=== PATIENT | female | born 1950 | race Caucasian/White ===

== ENCOUNTER 2017-01-24 23:06 | Inpatient (IN) | payer OTHER ==
--- NOTE | ~2017-01-24 | HP ---
History And Physical [place] [id number] [facility] [place]. [address] NAME: MENA NGUYEN : [birth year] STATUS : ADM IN [facility]#: [id number] AGE: 66 ADM/REG DATE : 01/24/17 MR#: [id number] REPORT SERV DATE: 01/25/17 DICTATED BY: VAN ROSS DATE: 01/24/17 REPORT STATUS : Draft TRANSCRIBED BY: MODL DATE: 01/24/17 DATE OF ADMISSION: 01/24/2017 CHIEF COMPLAINT: A shortness of breath. HISTORY OF PRESENT ILLNESS: This is a 66-year-old lady with history of COPD, smoking, hypertension, diabetes, depression, chronic pain who is presenting with a shortness of breath. The patient reports that she started having shortness of breath since about Monday, when she actually started with a cough. The cough is mildly productive of yellow sputum. The patient did not have any fevers, but she did have some chills. Unfortunately, the patient's shortness of breath and cough got worse over the weekend. The patient finally decided to come to the ER for further evaluation and care. The patient reports that she has not tried any antibiotics or steroids as an outpatient, and the patient reports that she does have COPD, but she is not dependent on any home oxygen. In the ER, the patient was found to be afebrile. The patient was pretty tachycardic with heart rate in the 120s, and the patient was hypoxic requiring 2 L of oxygen per nasal cannula to maintain adequate oxygen saturations. Initial lab evaluation was fairly benign. ABG confirmed hypoxic respiratory failure. Chest x-ray was nonacute. Internal Medicine consultation was requested for admission of the patient for further evaluation and care. REVIEW OF SYSTEMS: The patient denies any fevers, but she did have some chills. Also 14-point review of systems reviewed and negative other than mentioned above. MEDICATIONS: 1. ProAir two puffs inhaled as needed. 2. Albuterol nebulizer inhaled as needed. 3. Norvasc 5 mg p.o. q.p.m. 4. Lipitor 10 mg p.o. at bedtime. 5. Pristiq 50 mg p.o. q.a.m. 6. Dilaudid 2 mg p.o. q.4 hours p.r.n. 7. NovoLog per sliding scale. 8. Lantus 32 units subcu at bedtime. 9. Lisinopril 40 mg p.o. q.a.m. 10.Dulera two puffs inhaled twice daily. 11.Singulair 10 mg p.o. at bedtime. 12.Protonix 40 mg p.o. q.a.m. 13.Lyrica 75 mg p.o. b.i.d. 14.Phenergan 25 mg p.o. daily p.r.n. 15.Xarelto 20 mg p.o. q.a.m. 16.Spiriva one capsule inhaled at bedtime. ALLERGIES: 1. COMPAZINE. 2. STADOL. History And Physical [address] [address] NAME: MENA NGUYEN : [birth year] STATUS : ADM IN [facility]#: [id number] AGE: 66 ADM/REG DATE : 01/24/17 MR#: [id number] REPORT SERV DATE: 01/25/17 DICTATED BY: VAN ROSS DATE: 01/24/17 REPORT STATUS : Draft TRANSCRIBED BY: KANA DATE: 01/24/17 3. MORPHINE. 4. IMITREX. PAST MEDICAL HISTORY: 1. Colon cancer for which the patient follows with Dr. Sandy and Dr. Chavez. The patient has completed her 12 course of chemotherapy back in September and is currently under close surveillance. 2. Thyroid mass, pending surgical evaluation. 3. COPD, not dependent on home oxygen at baseline. 4. Hypertension. 5. Diabetes. 6. Depression. 7. Chronic pain for which the patient is on p.o. Dilaudid. 8. 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 9. Chronic migraines. 10.Peripheral neuropathy. PAST SURGICAL HISTORY: 1. Appendectomy. 2. Cholecystectomy. 3. Hysterectomy and bilateral oophorectomy. 4. Right-sided partial colectomy. 5. Cervical and lumbar spine surgeries. 6. Chemo port placement. FAMILY HISTORY: 1. Diabetes. 2. COPD. 3. Kidney diseases. SOCIAL HISTORY: Unfortunately, the patient continues to smoke about half a pack per day. The patient otherwise does not drink alcohol. 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 The patient lives at home by herself. PHYSICAL EXAMINATION: VITAL SIGNS: Temperature 99.2, blood pressure 187/88, pulse 120, respiratory rate is 16, and saturating 98% on 3 L of oxygen. NEUROLOGIC: The patient is alert and oriented x3 with no focal neurologic deficits. GENERAL: The patient is awake, does not appear to be in acute distress, and she is cooperative. NECK: No JVD. No lymphadenopathy. Normal thyroid. CHEST: No midline sternotomy scar and no tenderness to palpation. LUNGS: The patient has diffuse wheezes bilaterally that is quite severe. Otherwise, the patient actually has fairly normal respiratory effort on 2 L of oxygen. CARDIOVASCULAR: The patient is quite tachycardic, but otherwise, no murmurs, rubs, or gallops, and PMI is nondisplaced. History And Physical [address] [address] NAME: MENA NGUYEN : [birth year] STATUS : ADM IN [facility]#: [id number] AGE: 66 ADM/REG DATE : 01/24/17 MR#: [id number] REPORT SERV DATE: 01/25/17 DICTATED BY: VAN ROSS DATE: 01/24/17 REPORT STATUS : Draft TRANSCRIBED BY: KANA DATE: 01/24/17 ABDOMEN: Soft, nontender, with active bowel sounds and no organomegaly. EXTREMITIES: No edema. Normal distal pulses. No calf tenderness. SKIN: Clean, dry, warm, and intact. LABORATORY DATA: Sodium is 141, potassium 4.1, chloride 103, BUN 16, creatinine 0.91, glucose 167, calcium 10.0, magnesium 1.5. White blood cell count is 12.4, hemoglobin 14.1, platelets 248, INR is 2.7. Troponin is less than 0.02. BNP is 44.5. ABG; pH is 7.45, PCO2 36, PO2 57, and oxygen saturation of 90.2% on room air. Chest x-ray is personally interpreted and it shows flattening of the diaphragms, but otherwise no acute obvious infiltrates. EKG personally interpreted and it shows sinus tachycardia with no obvious ischemic changes. ASSESSMENT: This is a 66-year-old lady with history of chronic obstructive pulmonary disease presenting with acute chronic obstructive pulmonary disease exacerbation. 1. Acute on chronic obstructive pulmonary disease exacerbation. 2. Acute hypoxic respiratory failure secondary to above. 3. Continued smoking. 4. Anticoagulated with Xarelto due to history of mesenteric vein thrombosis. 5. Hypertension. 6. Insulin dependent diabetes, type 2. 7. Depression. 8. Chronic pain. PLAN: The plan is to admit the patient under telemetry monitoring. The patient will be given oxygen support and bronchodilator therapy. The patient will also be treated with IV steroids and antibiotics. The patient was also given smoking cessation counseling. Daily labs will be monitored. Otherwise, for the rest of stable past medical conditions, including hypertension, depression, diabetes et al, I will continue home medications. Standard DVT prophylaxis. The patient is full code at this time. YSC/MODL Van Ross MD / [id number] CC: Daren Lewis MD
--- NOTE | ~2017-01-24 | DS ---
Discharge Summary [facility] [address] [place]. [address] NAME: MENA NGUYEN : 46 STATUS : ADM IN [facility]#: [id number] AGE: 66 ADM/REG DATE : 01/24/17 MR#: [id number] REPORT SERV DATE: 01/28/17 DICTATED BY: ARTUR GILL DATE: 01/28/17 REPORT STATUS : Draft TRANSCRIBED BY: KANA DATE: 01/28/17 ADMISSION DATE: 01/24/2017 DISCHARGE DATE: 01/28/2017 DISCHARGE DIAGNOSES: 1. Chronic obstructive pulmonary disease, acute exacerbation. 2. Hypoxia, resolved. 3. Tobacco abuse. 4. Hypertension. 5. Chronic abdominal pain. 6. Mesenteric vein thrombus, continued Xeloda. 7. Colon cancer, Dr. Sandy, completed chemotherapy. IMAGING: Chest x-ray, January 24, 2017; impression, patchy disease at the left lung base, compatible with infiltrate and/or atelectasis. Right-sided Port-A-Cath in stable position. COURSE OF HOSPITAL STAY: Please refer to history and physical dictated by Dr. Van Velazco on January 24, 2017 for complete admission details. This patient is a 66-year-old female, who presented to [facility] with complaints of shortness of breath. She does present with a history of COPD, continues to smoke, hypertension, diabetes, depression, chronic abdominal pain, and colon cancer. 1. Chronic obstructive pulmonary disease, acute exacerbation. The patient was admitted to the hospital initially on nasal cannula, was been weaned off. Laboratory data was obtained. The patient was started on doxycycline, as well as Solu-Medrol. The patient was on Solu-Medrol, then changed to prednisone. At this time, she is on room air, tolerating prednisone and doxycycline. She will be discharged home with a prescription for tapering dose of prednisone, as well as continuing her antibiotic. 2. Hypoxia, resolved. It was noted the patient was in acute hypoxic respiratory failure secondary to her COPD exacerbation. The patient was able to wean off oxygen. At this time, she is on room air. 3. Tobacco abuse. This was discussed with the patient at great length regarding smoking cessation. At this time, the patient states that she will consider it. Prescription was provided. The patient was advised that medication is felt over the counter,but if insurance will pay for it, prescription has been provided for her. 4. Hypertension. The patient's blood pressures remained stable during her stay. 5. Chronic abdominal pain. The patient has had history of chronic abdominal pain. She is followed by Dr. Roberts of [facility]. The patient is on Dilaudid 2 mg every four hours p.r.n. for pain. Prescription was not written for patient's discharge. She has been advised to follow up with Dr. Sandy outpatient if prescription as needed. 6. Mesenteric vein thrombus. The patient has been continued on Xarelto during her stay. 7. Colon cancer. The patient is followed by Dr. Sandy, has completed chemotherapy. DISCHARGE PLAN: The patient will be discharged home today. She is in hemodynamically stable condition. She will follow up with her primary care in five to seven days, as well as Dr. Sandy for pain medication if needed. Discharge Summary [address] [address] NAME: MENA NGUYEN : 46 STATUS : ADM IN [facility]#: [id number] AGE: 66 ADM/REG DATE : 01/24/17 MR#: [id number] REPORT SERV DATE: 01/28/17 DICTATED BY: ARTUR GILL DATE: 01/28/17 REPORT STATUS : Draft TRANSCRIBED BY: KANA DATE: 01/28/17 DISCHARGE MEDICATIONS: 1. Norvasc 5 mg one p.o. every morning. 2. Lipitor 10 mg one p.o. at bedtime. 3. Lantus 32 units subcu at bedtime. 4. NovoLog sliding scale. 5. Lisinopril 40 mg one p.o. every morning. 6. Singulair 10 mg one p.o. at bedtime. 7. Protonix 40 mg one p.o. in the morning. 8. Lyrica 75 mg one p.o. daily. 9. Xarelto 20 mg one p.o. daily. 10.Prednisone tapering dose. 11.ProAir inhaler two puffs inhaler every day. 12.Dulera 200 mcg/5 mcg inhaler, two puffs twice daily. 13.Doxycycline 100 mg one p.o. twice daily. 14.Albuterol inhaler one nebulizer inhaled p.r.n. for shortness of breath. 15.Phenergan 25 mg one p.o. p.r.n. for nausea. 16.Spiriva inhaler one cap inhaled at bedtime. 17.Dilaudid 2 mg one p.o. every four hours as needed for pain. This discharge took greater than 30 minutes. OCTAVIO/KANA Artur Gill NP / [id number] CC: MD Kevin Morgan MD
[2017-01-24 18:49] LABS: BASOPHILS 0.2 %; BASOPHILS ABSOLUTE 0.02 10/3/uL (0.0-0.16); EOSINOPHILS 0.1 %; EOSINOPHILS ABSOLUTE 0.01 10/3/uL (0.0-0.53); ER CBC TAT 0 Hrs 05 Mins; HEMATOCRIT 42.1 % (36.0-48.0); HEMOGLOBIN 14.1 g/dL (12.0-16.0); IMMATURE GRANULOCYTES 0.2 %; IMMATURE GRANULOCYTES ABSOLUTE 0.03 10/3/uL (0.0-0.11); LYMPHOCYTES 10.6 %; LYMPHOCYTES ABSOLUTE 1.31 10/3/uL (0.67-4.30); MANUAL DIFF NO %; MEAN CORPUS HGB CONC 33.5 g/dL (32.0-36.0); MEAN CORPUSCULAR HEMOGLOB 30.3 pg (26.0-34.0); MEAN CORPUSCULAR VOLUME 90.3 fL (80-100); MEAN PLATELET VOLUME 11.4 fL (9.2-13.0); MONOCYTES ABSOLUTE 0.86 10/3/uL (0.21-1.20); NEUTROPHILS 81.9 %; NEUTROPHILS ABSOLUTE 10.13 10/3/uL (2.02-8.40); PLATELET COUNT 248 10/3/uL (150-400); RBC DISTRIBUTION WIDTH 12.8 % (12.0-16.0); RED CELL COUNT 4.66 10/6/uL (4.0-5.6); WHITE BLOOD CELLS 12.4 10/3/uL (4.5-10.5)
[2017-01-24 18:57] LABS: INTERNATIONAL NORMAL RATI 2.7 UNITS (-); PARTIAL THROMBO TIME 44.4 SEC (22.5-37.2)
[2017-01-24 18:59] LABS: PROTIME (NOT ORD) 28.7 SEC (12.0-14.5)
[2017-01-24 19:07] LABS: BUN (BLOOD UREA NITROGEN) 16 MG/DL (6-23); CHEST PAIN PROFILE TAT 0 Hrs 23 Mins; CHLORIDE, SERUM 103 MMOL/L (96-112); CO2 (CARBON DIOXIDE) 27 MMOL/L (24-34); CREATININE 0.91 MG/DL (0.55-1.02); GFR AFRICAN AMERICAN 75 ML/MIN (>=60); GFR NON AFRICAN AMERICAN 65 ML/MIN (>=60); GLUCOSE, SERUM 167 MG/DL (60-99); POTASSIUM, SERUM 4.1 MMOL/L (3.5-5.3); SODIUM, SERUM 141 MMOL/L (135-148); TROPONIN I <0.02 NG/ML (<0.05)
[2017-01-24 22:09] LABS: CARBOXYHEMOGLOBIN 3.6 % (0-3); HCO3 (ACTUAL BICARBONATE) 24.6 MEQ/L (23-27); HEMOBLOGIN CONTENT 13.8 G/DL (12-16); INSTRUMENT SERIAL # 8087; METHEMOGLOBIN 0.3 % (0-3); O2 CONTENT 16.8 VOL% (18-24); PCO2 (CO2 TENSION) 36 MMHG (35-45); PO2 (O2 TENSION) 57 MMHG (79-93); SAMPLE Arterial; pH 7.45 (7.37-7.43)
[~2017-01-24 23:06] MED LIST: ACET500CAP PO; ALBUTEROL NEBULIZER INH; ALBUTEROL0.083 % INH; ASAB PO; CHEMO IJ; CHEMO IV; CLARIT10 PO; DIL2TAB PO; DULERA 200 MCG/13 GM INH; ELIQUIS 5 MG TAB5 MG PO; HUMI PO; HUMULIN R1 ML SC; HYDROCHLOROT25 MG PO; IMOD PO; LANTUS SC; LEVAQUIN750 MG PO; LIPITOR10 PO; LISINOPRIL40 MG PO; LORCET PO; LYRICA75 PO; MD ANDERSON PO; NORCO1 TAB PO; NORV5 PO; NOVOLOG SC; OXYCOD PO; P20 PO; PR25 PO; PRISTIQ50 MG PO; PROAIR HFA INH; PROTONIX PO; PROVENTSOL INH; SINGULAIR1 PO; SPIRIVA INH; VENTOLIN HFA INH; X5 PO; XARELTO20 MG PO; Z-PAK PO; ZESTORETIC PO; ZESTRIL40 MG PO; ZOL100 PO
[2017-01-25 05:09] LABS: BASOPHILS 0 %; EOSINOPHILS 0 %; HEMATOCRIT 40.4 % (36.0-48.0); HEMOGLOBIN 13.1 g/dL (12.0-16.0); IMMATURE GRANULOCYTES 0.2 %; IMMATURE GRANULOCYTES ABSOLUTE 0.02 10/3/uL (0.0-0.11); LYMPHOCYTES 7.2 %; MANUAL DIFF NO %; MEAN CORPUS HGB CONC 32.4 g/dL (32.0-36.0); MEAN CORPUSCULAR HEMOGLOB 29.8 pg (26.0-34.0); MEAN CORPUSCULAR VOLUME 91.8 fL (80-100); MEAN PLATELET VOLUME 11.8 fL (9.2-13.0); NEUTROPHILS 91.6 %; NEUTROPHILS ABSOLUTE 8.97 10/3/uL (2.02-8.40); PLATELET COUNT 195 10/3/uL (150-400); RBC DISTRIBUTION WIDTH 12.9 % (12.0-16.0); WHITE BLOOD CELLS 9.8 10/3/uL (4.5-10.5)
[2017-01-25 05:15] LABS: BUN (BLOOD UREA NITROGEN) 19 MG/DL (6-23); CALCIUM, SERUM 9.1 MG/DL (8.5-10.4); CHLORIDE, SERUM 103 MMOL/L (96-112); CO2 (CARBON DIOXIDE) 25 MMOL/L (24-34); CREATININE 0.88 MG/DL (0.55-1.02); GFR AFRICAN AMERICAN 78 ML/MIN (>=60); GFR NON AFRICAN AMERICAN 68 ML/MIN (>=60); POTASSIUM, SERUM 4.3 MMOL/L (3.5-5.3); SODIUM, SERUM 139 MMOL/L (135-148)
[2017-01-25 05:18] LABS: GLUCOSE, SERUM 345 MG/DL (60-99)
[2017-01-28] MEDS ORDERED: STERAPRED DS10 MG PO (10:52)
[2017-01-28] MEDS ORDERED: ADOXA PAK1 MG/150 M PO (10:53)
[2017-01-28] MEDS ORDERED: HABIT14 TOP (10:54)
[2017-01-30] MEDS ORDERED: HABIT14 TOP (12:47)
[2017-02-20] MEDS ORDERED: NORCO1 TAB PO (12:18)
[2017-03-31] MEDS ORDERED: HYGROTON 25 MG25 MG PO (15:05)
[2017-07-31] MEDS ORDERED: LANTUS SC (00:47)
[2017-07-31] MEDS ORDERED: HUMULIN R1 ML SC (00:48)
[2017-07-31] MEDS ORDERED: LIPITOR10 PO (00:49)
[2017-07-31] MEDS ORDERED: PRISTIQ50 MG PO (00:49)
[2017-07-31] MEDS ORDERED: SINGULAIR1 PO (00:49)
[2017-07-31] MEDS ORDERED: LISINOPRIL40 MG PO (00:49)
[2017-07-31] MEDS ORDERED: PRIN20 PO (00:50)
[2017-07-31] MEDS ORDERED: PROAIR HFA INH (00:50)
[2017-07-31] MEDS ORDERED: VENTOLIN HFA INH (00:51)
[2017-07-31] MEDS ORDERED: NORV5 PO (00:52)
[2017-07-31] MEDS ORDERED: NORCO1 TAB PO (00:52)
[2017-07-31] MEDS ORDERED: PR25 PO (00:53)
[2017-07-31] MEDS ORDERED: BYSTOLIC5 MG PO (00:53)
[2017-08-04] MEDS ORDERED: XARELTO20 MG PO (15:19)
== END 2017-01-28 12:28 | disposition home or self-care (01) | DRG 189 ==
LOC: ER 23:06 → 5NO 23:34 → 4EA 01-26 15:08
PROVIDERS: Emergency Medicine; Internal Medicine; Specialist
DX: J96.01 Acute respiratory failure with hypoxia (principal); I81 Portal vein thrombosis; J44.1 Chronic obstructive pulmonary disease with (acute) exacerbation; C18.9 Malignant neoplasm of colon, unspecified; I10 Essential (primary) hypertension; F17.210 Nicotine dependence, cigarettes, uncomplicated; Z79.01 Long term (current) use of anticoagulants; E11.9 Type 2 diabetes mellitus without complications; Z79.4 Long term (current) use of insulin; F32.9 Major depressive disorder, single episode, unspecified; G89.29 Other chronic pain
CPT/HCPCS: 36600; 71010; 80048; 82805; 82962; 83735; 83880; 84145; 84484; 85025; 85610; 85730; 93005; 94640; 96374; 96375; 99285; A9270-GY; J0456; J1170; J2405; J2550; J2920

== ENCOUNTER 2017-03-02 11:57 | Day surgery (SDC) | payer OTHER ==
--- NOTE | ~2017-03-02 | EGD ---
EGD REPORT [facility] [address] [place] [address] NAME: MCKENNA ESPINO : 46 STATUS : REG [facility]#: [id number] AGE: 66 ADM/REG DATE : 03/02/17 MR#: [id number] REPORT SERV DATE: 03/02/17 DICTATED BY: ANDI ARRIAGA DATE: 03/02/17 REPORT STATUS : Draft TRANSCRIBED BY: [facility] DATE: 03/02/17 Endoscopy Center Patient Name: Mckenna Espino Date of : 1950 Attending MD: BERT ARRIAGA MD Procedure Date No Time: 03/02/2017 Procedure: Colonoscopy Indications: High risk colon cancer surveillance: Personal history of colon cancer Referring MD: Kevin Kearney, Vicente Blanca, Ganesh Sandy Medicines: See the Anesthesia note for documentation of the administered medications Complications: No immediate complications. Estimated blood loss: None. Procedure: Pre-Anesthesia Assessment: - ASA Grade Assessment: III - A patient with severe systemic disease. - Prior to the procedure, a History and Physical was performed, and patient medications and allergies were reviewed. The patient's tolerance of previous anesthesia was also reviewed. The risks and benefits of the procedure and the sedation options and risks were discussed with the patient. All questions were answered, and informed consent was obtained. Prior Anticoagulants: The patient has taken no previous anticoagulant or antiplatelet agents. After reviewing the risks and benefits, the patient was deemed in satisfactory condition to undergo the procedure. After I obtained informed consent, the scope was passed under direct vision. Throughout the procedure, the patient's blood pressure, pulse, and oxygen saturations were monitored continuously. The PCF [id number] was introduced through the anus and advanced to the ileocolonic anastomosis. The rectum and ileocolonic anastamosis were photographed. Findings: The perianal and digital rectal examinations were normal. There was evidence of a prior end-to-end ileo-colonic anastomosis in the mid ascending colon. This was patent. This was characterized by healthy appearing mucosa. This was traversed. Non-bleeding internal hemorrhoids were found during retroflexion and were Grade I (internal hemorrhoids that do not prolapse). No other significant abnormalities were identified in a careful examination of the remainder of the colon. EGD REPORT [place] [id number] [facility] [place]. [address] NAME: MCKENNA ESPINO : 46 STATUS : REG [facility]#: [id number] AGE: 66 ADM/REG DATE : 03/02/17 MR#: [id number] REPORT SERV DATE: 03/02/17 DICTATED BY: ANDI ARRIAGA DATE: 03/02/17 REPORT STATUS : Draft TRANSCRIBED BY: [employer] DATE: 03/02/17 Impression: - Patent end-to-end ileo-colonic anastomosis. - Non-bleeding internal hemorrhoids. Recommendation: - Patient has a contact number available for emergencies. The signs and symptoms of potential delayed complications were discussed with the patient. Return to normal activities tomorrow. Written discharge instructions were provided to the patient. - Regular diet. - Discharge patient to home. - Continue present medications. - Repeat colonoscopy in 3 years for surveillance. Procedure Code(s): --- Professional --- 57563, Colonoscopy, flexible, proximal to splenic flexure; diagnostic, with or without collection of specimen(s) by brushing or washing, with or without colon decompression (separate procedure) Diagnosis Code(s): --- Professional --- Z98.0, Intestinal bypass and anastomosis status K64.0, First degree hemorrhoids Z85.038, Personal history of other malignant neoplasm of large intestine CPT copyright 2013 [employer]. All rights reserved. The codes documented in this report are preliminary and upon rehabilitation therapy aide review may be revised to meet current compliance requirements. BERT ARRIAGA MD 03/02/2017 3:51 PM This report has been signed electronically. Number of Addenda: 0 Note Initiated On: 03/02/2017 2:51 PM Scope Withdrawal Time 0 hours 0 minutes 0 seconds [address] [place] [id number]
[~2017-03-02 11:57] MED LIST changes: +ADOXA PAK1 MG/150 M PO; +HABIT14 TOP; +STERAPRED DS10 MG PO
[2017-03-31] MEDS ORDERED: HYGROTON 25 MG25 MG PO (15:05)
[2017-07-31] MEDS ORDERED: LANTUS SC (00:47)
[2017-07-31] MEDS ORDERED: HUMULIN R1 ML SC (00:48)
[2017-07-31] MEDS ORDERED: PRISTIQ50 MG PO (00:49)
[2017-07-31] MEDS ORDERED: LIPITOR10 PO (00:49)
[2017-07-31] MEDS ORDERED: SINGULAIR1 PO (00:49)
[2017-07-31] MEDS ORDERED: LISINOPRIL40 MG PO (00:49)
[2017-07-31] MEDS ORDERED: PROAIR HFA INH (00:50)
[2017-07-31] MEDS ORDERED: PRIN20 PO (00:50)
[2017-07-31] MEDS ORDERED: VENTOLIN HFA INH (00:51)
[2017-07-31] MEDS ORDERED: NORV5 PO (00:52)
[2017-07-31] MEDS ORDERED: NORCO1 TAB PO (00:52)
[2017-07-31] MEDS ORDERED: PR25 PO (00:53)
[2017-07-31] MEDS ORDERED: BYSTOLIC5 MG PO (00:53)
[2017-08-04] MEDS ORDERED: XARELTO20 MG PO (15:19)
== END 2017-03-02 23:59 | disposition home or self-care (01) ==
LOC: DMU 11:57
PROVIDERS: Internal Medicine Gastroenterology
PROC: 0DJD8ZZ Inspection of Lower Intestinal Tract, Via Natural or Artificial Opening Endoscopic (ICD-10-PCS; principal; 2017-03-02 14:00)
DX: Z12.11 Encounter for screening for malignant neoplasm of colon (principal); K64.0 First degree hemorrhoids; E11.9 Type 2 diabetes mellitus without complications; F17.200 Nicotine dependence, unspecified, uncomplicated; I10 Essential (primary) hypertension; J44.9 Chronic obstructive pulmonary disease, unspecified; Z85.038 Personal history of other malignant neoplasm of large intestine; Z98.0 Intestinal bypass and anastomosis status; Z88.5 Allergy status to narcotic agent; Z88.1 Allergy status to other antibiotic agents; Z85.820 Personal history of malignant melanoma of skin; Z79.899 Other long term (current) drug therapy
CPT/HCPCS: 82962

== ENCOUNTER 2017-04-05 09:14 | Day surgery (SDC) | payer OTHER ==
--- NOTE | ~2017-04-05 | OP ---
Record Of Operation [facility] [address] [place]. [address] NAME: MENA NGUYEN : 46 STATUS : [facility]#: [id number] AGE: 66 ADM/REG DATE : 04/05/17 MR#: [id number] REPORT SERV DATE: 04/05/17 DICTATED BY: ELIZABETH COX DATE: 04/05/17 REPORT STATUS : Draft TRANSCRIBED BY: MODSherrell DATE: 04/05/17 DATE OF PROCEDURE: 04/05/2017 SERVICE: Otolaryngology. PREOPERATIVE DIAGNOSIS: Right multinodular goiter with dominant nodule. POSTOPERATIVE DIAGNOSIS: Right multinodular goiter with dominant nodule. PROCEDURES: 1. Right hemithyroidectomy with isthmusectomy. 2. Nerve integrity monitoring. SURGEON: Elizabeth Cox M.D. ANESTHESIA: General endotracheal anesthesia utilizing a nerve integrity monitoring tube. FINDINGS: The patient had a large substernal dominant nodule requiring transection of the strap muscles on the right-hand side for removal. The recurrent laryngeal nerve was well seen and did stimulate at the end of the case. The parathyroid glands were not well seen. The specimen was inspected on the back table. I did not see any evidence of parathyroid tissue on the specimen. It was sent for frozen analysis and found to be likely benign hyperplastic nodule. STATEMENT OF MEDICAL NECESSITY: This is a 66-year-old female with a large dominant nodule larger than 4 cm, who had undergone a previous fine-needle aspiration biopsy which was benign. However, the patient was beginning to have dysphagia and shortness of breath secondary to the size of the nodule and there was also a significant risk of sampling by given its size. With these factors together, I decided to proceed with a right hemithyroidectomy, possible total depending on frozen path. STATEMENT OF OPERATION: The patient was brought to the operating room in supine position, transferred over to the operating room table. All pressure points were padded and general endotracheal anesthesia was established with a nerve integrity monitoring tube. The patient's neck was placed in slight extension using a shoulder roll. An incision was marked out in a natural relaxed skin tension line of the neck approximately 2-1/2 fingerbreadths above the sternal notch. It was infiltrated with 4 mL of 1% lidocaine with epinephrine. The patient was then prepped and draped in the usual fashion. Then using a #15 blade, the skin was incised through the level of the platysma. Once through the platysma, Christine retracting hooks were placed in the wound. The midline raphe was easily identified and was divided sharply using Metzenbaum scissors and Bovie cautery. Initially, the strap muscles were elevated off the remnant thyroid. There was actually a normal appearing right thyroid lobe and this was freed easily from its superior and inferior pole. However, there was a large dominant mass that took up most of the neck on that side and extended well below the clavicle and underneath the trachea. It was carefully from the surrounding tissues using a long tonsil clamp and a Harmonic scalpel. The strap muscles inside were Record Of Operation [address] [place]. [address] NAME: MENA NGUEYN : 46 STATUS : [facility]#: [id number] AGE: 66 ADM/REG DATE : 04/05/17 MR#: [id number] REPORT SERV DATE: 04/05/17 DICTATED BY: ELIZABETH COX DATE: 04/05/17 REPORT STATUS : Draft TRANSCRIBED BY: KANA DATE: 04/05/17 sectioned in the midline with the Harmonic scalpel. This allowed for delivery of the massive nodule into the neck. Once into the neck, the nerve was seen in the tracheoesophageal groove and the soft tissue between the nerve and the thyroid gland was gently by Velez ligaments. The superior and inferior pole were isolated and divided using a Harmonic scalpel. The gland was removed from the anterior trachea by dividing the remainder of Velez ligaments and delivered out onto the field. It was inspected on the back table and passed off to the pathologist for frozen analysis. The strap muscles were then closed using 3-0 Vicryl sutures. The wound was irrigated thoroughly with warm saline and fibrillar gauze was placed in the superior and inferior gutter. Once we had confirmation of likely benign on frozen, the strap muscles were closed with a single stitch superiorly and a large opening inferiorly. Next, the platysma closed with buried 4-0 Vicryl sutures followed by the deep dermis, which was closed with buried 4-0 Vicryl sutures. Finally, the skin was approximated with a running 5-0 Monocryl suture that was buried. The skin around this, the incision edges were cleansed with warm saline and dried. Mastisol solution was applied followed by Steri-Strips cut into 1/3. This concluded the case. The patient was turned back over to Anesthesia, where she awoke, was extubated, and transferred to the PACU in stable condition. NATALIE/KANA Elizabeth Cox MD / [id number] CC: MD Kevin Tang MD
[~2017-04-05 09:14] MED LIST changes: +HYGROTON 25 MG25 MG PO
[2017-04-05 12:20] LABS: PTH (INTRAOPERATIVE) 122.6 PG/ML (10.0-65.0); PTH TAT 0 Hrs 00 Mins
[2017-07-31] MEDS ORDERED: LANTUS SC (00:47)
[2017-07-31] MEDS ORDERED: HUMULIN R1 ML SC (00:48)
[2017-07-31] MEDS ORDERED: LISINOPRIL40 MG PO (00:49)
[2017-07-31] MEDS ORDERED: SINGULAIR1 PO (00:49)
[2017-07-31] MEDS ORDERED: LIPITOR10 PO (00:49)
[2017-07-31] MEDS ORDERED: PRISTIQ50 MG PO (00:49)
[2017-07-31] MEDS ORDERED: PRIN20 PO (00:50)
[2017-07-31] MEDS ORDERED: PROAIR HFA INH (00:50)
[2017-07-31] MEDS ORDERED: VENTOLIN HFA INH (00:51)
[2017-07-31] MEDS ORDERED: NORCO1 TAB PO (00:52)
[2017-07-31] MEDS ORDERED: NORV5 PO (00:52)
[2017-07-31] MEDS ORDERED: PR25 PO (00:53)
[2017-07-31] MEDS ORDERED: BYSTOLIC5 MG PO (00:53)
[2017-08-04] MEDS ORDERED: XARELTO20 MG PO (15:19)
== END 2017-04-05 18:06 | disposition home or self-care (01) ==
LOC: SDC 09:14
PROVIDERS: Otolaryngology
PROC: 0GTH0ZZ Resection of Right Thyroid Gland Lobe, Open Approach (ICD-10-PCS; principal; 2017-04-05 11:30)
DX: E04.2 Nontoxic multinodular goiter (principal); I10 Essential (primary) hypertension; J44.9 Chronic obstructive pulmonary disease, unspecified; E11.9 Type 2 diabetes mellitus without complications; Z98.890 Other specified postprocedural states; Z88.8 Allergy status to other drugs, medicaments and biological substances; Z87.891 Personal history of nicotine dependence; Z85.038 Personal history of other malignant neoplasm of large intestine; Z90.49 Acquired absence of other specified parts of digestive tract; Z90.710 Acquired absence of both cervix and uterus; Z79.899 Other long term (current) drug therapy; Z88.6 Allergy status to analgesic agent; Z79.891 Long term (current) use of opiate analgesic; Z79.4 Long term (current) use of insulin
CPT/HCPCS: 82962; 83970; 88307; 88331; A9270-GY; J0690; J1170; J2370; J2405; J3010